=== PATIENT | male | born 2000 | race Caucasian/White ===

== ENCOUNTER 2022-11-13 07:53 | Outpatient (AMB) | payer MEDICAID, SELFPAY ==
--- NOTE | 2022-11-13 08:10 | MHC.OFFVIS ---
Intake Vital Signs 11/13/22 08:17 Height 5 ft 9 in Weight 162 lb BMI 23.9 BP 131/81 Blood Pressure Location Rt brachial Position Sitting Pulse 77 Intake Visit Reasons: Cyst vs lipoma Lt foot Intake Note: This patient presents for an assessment for cyst vs lipoma of the left foot. Patient c/o; denies pain, cyst vs lipoma, reports x2 masses, is scheduled to have a foot US 11/14/22. 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 He says he has noticed this for over 2 weeks. He denies any significant pain. He was seen by his primary care and was sent to me. He also says that he is scheduled for an ultrasound of the mass tomorrow He denies any discharge or any skin changes. [facility] Medical History (Updated 11/13/22 @ 09:02 by Cullen Esteban MD) Subcutaneous mass of left foot Surgical History History of adenoidectomy Family History Maternal Grandfather Throat cancer Maternal Aunt Colon cancer, Onset Age: 50 Social History Alcohol intake: never Patient Tobacco Use Status: Never used Tobacco Review of Systems Const Denies chills and Denies fever(s) Card Denies chest pain, Denies dyspnea and Denies dyspnea on exertion Resp Denies cough, Denies dyspnea and Denies dyspnea on exertion GI Denies hematochezia and Denies change in bowel habits Denies hematuria and Denies difficulty urinating Musc Denies back pain and Denies limited range of motion Neuro Denies focal weakness and Denies convulsions Psych Denies depression and Denies mood swings Physical Exam Vital Signs: Last Vital Signs Pulse 77 11/13/22 08:17 BP 131/81 11/13/22 08:17 BMI result Body Mass Index 23.9 Const General: comfortable and no acute distress Orientation/consciousness: patient oriented x3 Neck Neck: Yes no lymphadenopathy Resp Auscultation: clear to auscultation bilaterally Cardio Rhythm: regular rhythm GI Palpation (GI): Soft to palpation, nontender and no guarding Neuro General: patient oriented x3 Extrem Other: Dorsum of left foot with a small, soft, movable subcutaneous mass, measuring about 1.5-2 cm with no skin changes Assessment & Plan Assessment & Plan (1) Subcutaneous mass of left foot: Code(s): R22.42 - Localized swelling, mass and lump, left lower limb Plan: This appears to be a lipoma. He states that he is scheduled to have an ultrasound tomorrow. He wants to wait for this prior to any intervention. I did explain to him the option of proceeding with excision. I explained the technique of excision under local anesthesia. I reviewed the risks, benefits, and alternatives He says he will come back to the office in about 2 weeks or so. Coding Level of Care Code New Pt Level 3 (66042) Diagnoses Subcutaneous mass of left foot R22.42
[2022-11-13 08:17] VITALS: BP 131/81; PULSE 77; BMI 23.9
== END 2022-11-13 09:02 | disposition home or self-care (01) ==
PROVIDERS: PCP Pediatrics; Visit Provider Surgery
DX: R22.42 Localized swelling, mass and lump, left lower limb (principal)
CPT/HCPCS: 99203

== ENCOUNTER → 2022-11-13 07:53 | Outpatient (BNVA) | payer MEDICAID, SELFPAY | PROVIDERS: PCP Pediatrics; Visit Provider Surgery ==

== ENCOUNTER 2022-11-14 13:38 | Outpatient (REF) | payer MEDICAID, SELFPAY ==
--- NOTE | ~2022-11-14 | US_ITS ---
EXAMINATION: ULTRASOUND EXTREMITY LEFT FOOT CLINICAL INFORMATION: Growth of left foot, question bony prominence at the dorsal/lateral, proximal foot. Similar to finding present on contralateral right foot, just less prominent. COMPARISON: None available. TECHNIQUE: Targeted ultrasound images were obtained by the 3d technologist of the area of concern as indicated by the patient along the proximal, lateral/dorsal aspect of the left foot. Radiologist was not in attendance. Images were later provided for interpretation. FINDINGS: No discrete mass or fluid collection identified in the area of concern indicated by the patient along the proximal, lateral/dorsal aspect of the left foot. Bony prominence is identified in this region. Dedicated radiographs of the foot/ankle recommended with placement of a radiopaque marker to indicate the area of concern indicated by the patient. US/US extremity nonvascular IMPRESSION: No discrete mass or fluid collection identified in the area of concern indicated by the patient along the proximal, lateral/dorsal aspect of the left foot. Bony prominence is identified in this region, difficult to evaluate due to shadowing. Dedicated radiographs of the foot/ankle recommended with placement of a radiopaque marker to indicate the area of concern indicated by the patient.
== END 2022-11-14 13:39 | disposition home or self-care (01) ==
LOC: HO.US 13:38
PROVIDERS: Visit Provider Internal Medicine
DX: D49.2 Neoplasm of unspecified behavior of bone, soft tissue, and skin (principal)
CPT/HCPCS: 76882

== ENCOUNTER 2022-11-21 13:35 | Outpatient (AMB) | payer MEDICAID, SELFPAY ==
--- NOTE | 2022-11-21 14:00 | A.OFFVIS_ITS ---
Intake Intake Visit Reasons: Lipoma Lt foot, US results Intake Note: This patient presents for a follow-up assessment status post Ultrasound. Patient c/o; reports no changes at this time. 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 He was for this because of what appeared to be lipoma on the left foot. His ultrasound report states that there was no obvious mass or fluid collections seen. However, the patient points to this area on the left foot with a definite mass on the dorsal aspect. [facility] Medical History Subcutaneous mass of left foot Surgical History History of adenoidectomy Family History Maternal Grandfather Throat cancer Maternal Aunt Colon cancer, Onset Age: 50 Social History Alcohol intake: never Patient Tobacco Use Status: Never used Tobacco Review of Systems Const Denies chills and Denies fever(s) Card Denies chest pain, Denies dyspnea and Denies dyspnea on exertion Resp Denies cough, Denies dyspnea and Denies dyspnea on exertion GI Denies hematochezia and Denies change in bowel habits Denies hematuria and Denies difficulty urinating Musc Denies back pain and Denies limited range of motion Neuro Denies focal weakness and Denies convulsions Psych Denies depression and Denies mood swings Physical Exam Const General: comfortable and no acute distress Resp Effort & Inspection: normal respiratory effort Extrem Other: Dorsum of left foot with note of a mobile subcutaneous mass, about 2 cm in size, nontender Assessment & Plan Assessment & Plan (1) Subcutaneous mass of left foot: Code(s): R22.42 - Localized swelling, mass and lump, left lower limb Plan: I reviewed with him the ultrasound findings. However, he does have a movable mass on the area as described above. He says that he wants to proceed with excision. I explained the technique of excision under local anesthesia. I reviewed the risks, benefits, and alternatives and has given consent. This excision will be done in the office on his next visit. Coding Level of Care Code Est Pt Level 2 (68378) Diagnoses Subcutaneous mass of left foot R22.42
== END 2022-11-21 14:23 | disposition home or self-care (01) ==
PROVIDERS: PCP Pediatrics; Visit Provider Surgery
DX: R22.42 Localized swelling, mass and lump, left lower limb (principal)
CPT/HCPCS: 99212

== ENCOUNTER → 2022-11-21 13:35 | Outpatient (BNVA) | payer MEDICAID, SELFPAY | PROVIDERS: PCP Pediatrics; Visit Provider Surgery | DX: R22.42 Localized swelling, mass and lump, left lower limb (principal) | CPT/HCPCS: 99212 ==

== ENCOUNTER 2022-11-28 10:38 | Outpatient (AMB) | payer MEDICAID, SELFPAY ==
[2022-11-28 10:40] VITALS: BP 137/75; PULSE 98; BMI 23.9
--- NOTE | 2022-11-28 10:40 | MHC.OFFVIS ---
Intake Vital Signs 11/28/22 10:40 Height 5 ft 9 in Weight 162 lb 0.001 oz BMI 23.9 BP 137/75 Blood Pressure Location Rt brachial Position Sitting Pulse 98 Intake Visit Reasons: Excision of left foot mass Intake Note: This patient presents for in-office procedure for excision of left foot mass. Patient c/o; reports no changes. 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 Accompanied by: Self / Same As Patient Allergies No Known Allergies Allergy (Unverified 11/28/22 10:41) [facility] Medical History Subcutaneous mass of left foot Surgical History History of excision of mass History of adenoidectomy Family History Maternal Grandfather Throat cancer Maternal Aunt Colon cancer, Onset Age: 50 Social History Alcohol intake: never Patient Tobacco Use Status: Never used Tobacco Physical Exam Vital Signs: Last Vital Signs Pulse 98 11/28/22 10:40 BP 137/75 11/28/22 10:40 BMI result Body Mass Index 23.9 Office Procedures Excision Details: He was placed supine. The area of the subcutaneous mass on the dorsum of the left foot was prepped and draped. Lidocaine 1% was used for local anesthesia. I made an incision on the skin overlying the mass using blade 15. This carried down sharply through the full-thickness of the skin and subcutaneous fat until I visualized the mass. This was a soft rubbery mass, not well-defined, about 2 cm in widest dimension. This mass was sharply dissected off the rest of the subcutaneous layer with Metzenbaum scissors until this was delivered and sent as a specimen. I closed the incision with full-thickness nylon 3-0 interrupted sutures. Dressings were applied. The procedure was completed. He was given wound care instructions. He tolerated the procedure well. 61459-ztmkc/arms/legs 1.1-2cm Procedure code (CPT) selection complete Assessment & Plan Assessment & Plan (1) Subcutaneous mass of left foot: Code(s): R22.42 - Localized swelling, mass and lump, left lower limb Plan: Excision done in the office under local anesthesia. He was given wound care instructions. Will be seen in the office for removal sutures. Coding Level of Care Code Procedure Only Diagnoses Subcutaneous mass of left foot R22.42 CPT Codes Trunk/Arms/Legs - CPT: 47200-owyce/arms/legs 1.1-2cm ([id number])
== END 2022-11-28 11:22 | disposition home or self-care (01) ==
PROVIDERS: PCP Pediatrics; Visit Provider Surgery
DX: R22.42 Localized swelling, mass and lump, left lower limb (principal)
CPT/HCPCS: 11402

== ENCOUNTER 2022-11-28 10:38 | Outpatient (REF) | payer MEDICAID, SELFPAY | END 2022-11-28 10:39 | disposition home or self-care (01) | LOC: HO.LNP 10:38 | PROVIDERS: PCP Pediatrics; Visit Provider Surgery | DX: D23.72 Other benign neoplasm of skin of left lower limb, including hip (principal) | CPT/HCPCS: 11402; 88305 ==

== ENCOUNTER 2022-12-09 13:42 | Outpatient (AMB) | payer MEDICAID, SELFPAY ==
--- NOTE | 2022-12-09 13:43 | MHC.OFFVIS ---
Intake Vital Signs 12/09/22 13:46 Height 5 ft 9 in BP 117/78 Blood Pressure Location Rt brachial Position Sitting Pulse 113 H Intake Visit Reasons: s/p excision of left foot mass Intake Note: This patient presents for a post-op assessment status post excision left foot mass. Patient c/o; reports no changes or complaints at this time. 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 He tolerated the procedure well. Her currently denies significant complaints. [facility] Medical History Subcutaneous mass of left foot Surgical History History of excision of mass History of adenoidectomy Family History Maternal Grandfather Throat cancer Maternal Aunt Colon cancer, Onset Age: 50 Social History Alcohol intake: never Patient Tobacco Use Status: Never used Tobacco Review of Systems Const Denies chills and Denies fever(s) Card Denies chest pain, Denies dyspnea and Denies dyspnea on exertion Resp Denies cough, Denies dyspnea and Denies dyspnea on exertion GI Denies hematochezia and Denies change in bowel habits Denies hematuria and Denies difficulty urinating Musc Denies back pain and Denies limited range of motion Neuro Denies focal weakness and Denies convulsions Psych Denies depression and Denies mood swings Physical Exam Vital Signs: Last Vital Signs Pulse 113 H 12/09/22 13:46 BP 117/78 12/09/22 13:46 Const General: comfortable and no acute distress Extrem Other: Left foot excision site on the dorsum is well healed, not infected, sutures intact Assessment & Plan Assessment & Plan (1) Subcutaneous mass of left foot: Code(s): R22.42 - Localized swelling, mass and lump, left lower limb Plan: Status post excision. The incision is well healed. I removed all his sutures. I reinforced incision with Steri-Strips. His path report shows a collagenous fibroma. I explained to him the benign nature of this pathology. He can follow up on a p.r.n. basis. Coding Level of Care Code Global (11210) Diagnoses Subcutaneous mass of left foot R22.42
[2022-12-09 13:46] VITALS: BP 117/78; PULSE 113
== END 2022-12-09 13:53 | disposition home or self-care (01) ==
PROVIDERS: PCP Pediatrics; Visit Provider Surgery
DX: R22.42 Localized swelling, mass and lump, left lower limb (principal)
CPT/HCPCS: 99024

== ENCOUNTER → 2022-12-09 13:42 | Outpatient (BNVA) | payer MEDICAID, SELFPAY | PROVIDERS: PCP Pediatrics; Visit Provider Surgery ==

== ENCOUNTER 2023-04-23 09:42 | Outpatient (REF) | payer MEDICAID, SELFPAY ==
[2023-04-23 11:49] LABS: Cholesterol 165 mg/dL (<200); HDL Cholesterol 47 mg/dL (>40); LDL Cholesterol Calculated 96 mg/dL (<100); Triglycerides 114 mg/dL (<150)
== END 2023-04-23 09:43 | disposition home or self-care (01) ==
LOC: HO.HHCL 09:42
PROVIDERS: Visit Provider Nurse Practitioner Primary Care
DX: E78.1 Pure hyperglyceridemia (principal)
CPT/HCPCS: 36415; 80061

== ENCOUNTER 2024-08-03 09:01 | Outpatient (REF) | payer MEDICAID, SELFPAY ==
[2024-08-03 11:49] LABS: Cholesterol 201 mg/dL (<200); HDL Cholesterol 38 mg/dL (>40); LDL Cholesterol Calculated 122 mg/dL (<100); Triglycerides 207 mg/dL (<150)
== END 2024-08-03 09:02 | disposition home or self-care (01) ==
LOC: HO.HHCL 09:01
PROVIDERS: Visit Provider Nurse Practitioner Primary Care
DX: E78.1 Pure hyperglyceridemia (principal)
CPT/HCPCS: 36415; 80061

== ENCOUNTER 2024-11-26 16:28 | Emergency (ER) | payer MEDICAID, SELFPAY ==
[2024-11-26 16:52] VITALS: BP 147/74; PULSE 94; RESP 16; TEMP 36.4; O2SAT 98; BMI 25.1
--- NOTE | 2024-11-26 16:52 | ED.GENADULT ---
HPI - General Adult General Chief complaint: Abdominal Pain Stated complaint: v/d loss of appetite Time Seen by Provider: 11/26/24 19:54 History of Present Illness ED Provider: Ashu Cedillo MD HPI narrative: [age] male with less than 24 hours of loose stool multiple episodes per day without blood gas and cramping in the abdomen diffusely as well as nausea and decreased p.o. intake. No fever no recent unusual foods. No sick contacts. No travel outside the country . No known inflammatory bowel disease or other medical issues. He does take psychiatric medications that are listed in the chart is clonidine ADHD medication and loratadine. No focal abdominal pain described no lower abdominal pain Related Data Home Medications ?Medication ?Instructions ?Recorded ?Confirmed clonidine HCl 0.1 mg tablet 0.1 mg PO BEDTIME PRN 11/13/22 11/21/22 dextroamphetamine-amphetamine ER 1 cap PO DAILY attention deficit 11/13/22 11/21/22 25 mg 24hr capsule,extend release hyperactivity disorder (Adderall XR) fluticasone propionate 50 intranasal 11/13/22 11/21/22 mcg/actuation nasal spray,suspension loratadine 10 mg tablet 10 mg PO DAILY PRN allergies 11/13/22 11/21/22 omega-3 fatty acids 500 mg capsule 500 mg PO DAILY 11/13/22 11/21/22 Previous Rx's ?Medication ?Instructions ?Recorded dicyclomine 10 mg capsule 10 mg PO TID #7 caps 11/26/24 ondansetron 4 mg disintegrating 4 mg PO Q8H PRN nausea and 11/26/24 tablet vomiting #7 tabs simethicone 180 mg capsule 180 mg PO BID PRN abdominal 11/26/24 distention #10 caps Allergies Allergy/AdvReac Type Severity Reaction Status Date / Time No Known Allergies Allergy Verified 11/26/24 16:52 [facility] Past Medical History Medical History Subcutaneous mass of left foot Surgical History History of excision of mass History of adenoidectomy Family History Family History Maternal Grandfather Throat cancer Maternal Aunt Colon cancer, Onset Age: 50 Social History Social History Alcohol intake: never Patient Tobacco Use Status: Never used Tobacco Smoked in Last 30 Days: No Use of substances other than those prescribed or required for medical reasons: No Advance Directives: No Advance Directives Information Provided: Yes Physical Exam ED Exam Exam: EXAM: Gen: Alert, awake, well appearing, well hydrated. Head: Atraumatic Eyes: Anicteric, Normal conjunctiva. ENT: Moist mucosa, no pallor. ? Neck: Supple. Skin: ?No observable rash or bruising on exposed or examined skin Respiratory: Breathing comfortably, No distress.Clear to auscultation bilaterally, symmetric chest expansion, No wheeze, rales, ronchi. Cardiovascular: Regular rate and rhythm. No murmurs or rub. Well perfused periphery, warm extremities. No edema. ? Abdominal: No focal tenderness. Soft, no objective distension. No palpable masses or obvious organomegaly. ?No guarding, no rebound tenderness or other peritoneal findings. : No flank tenderness. Neuro: Alert. Gross movement of all extremities intact. ? Psych: Calm. Cooperative. MSK: No grossly visible deformity. Vital signs: See flowsheet Vital Signs: Vital Signs - 24 hr 11/26/24 16:52 11/26/24 21:18 11/26/24 21:20 Temperature 97.6 F 98.4 F 98.4 F Pulse Rate 94 82 82 Respiratory Rate 16 16 16 Blood Pressure 147/74 H 119/76 119/76 Pulse Oximetry 98 98 98 Oxygen Delivery Method Room Air Room Air Room Air BMI result Body Mass Index 25.1 Course Course Course Narrative: This is a rapid medical exam performed by Buddy Nicole NP: Additional HPI, ROS, PE not included below will be deferred to primary provider. Patient is a 22-year-old male presenting in the emergency department with complaint of nausea vomiting diarrhea since yesterday. Intermittent abdominal pain. Plan: Labs, viral swabs Medications Administered Discontinued Medications Generic Name Dose Route Start Last Admin Trade Name Freq PRN Reason Stop Dose Admin Dicyclomine HCl 10 mg 11/26/24 20:03 11/26/24 21:14 Dicyclomine Hcl 10 Mg Capsule PO 11/26/24 20:04 10 mg ONCE ONE Administration Ondansetron HCl 4 mg 11/26/24 20:03 11/26/24 21:14 Ondansetron Odt 4 Mg Tab.Sudis TRANSLINGU 11/26/24 20:04 4 mg ONCE ONE Administration Medical Decision Making Medical Decision Making MDM Narrative: Medical Decision Makin-year-old healthy male with less than 24 hours of GI symptoms as above. Looks euvolemic comfortable afebrile. Vitals stable. Abdominal exam reassuring doubt acute surgical pathology certainly no clinical evidence to suggest appendicitis, colitis or other acute abdominal pathology to indicate any emergent abdominal imaging. Symptomatic control strict return precautions described patient is with a family member who was present for the conversation Preliminary Favored Differential Diagnosis: Gastroenteritis, food-borne illness, dehydration, electrolyte derangement among additional considered etiologies Testing Interpreted Independently: ?See below for details Radiology or Lab testing Results Reviewed: ?See below for details Consults: ?See below for details Independent Historians/External Chart Reviews: ?See below for details Social Determinants of Health Impacting MDM/Planning: ?See below for details Lab Data MDM Lab Attestation statement: I reviewed the patient's lab results. 11/26/24 17:31 11/26/24 17:31 Labs: Lab Results 11/26/24 Range/Units 17:31 WBC 8.2 (4.8-10.8) X10*3/uL RBC 5.54 (4.60-5.80) X10*6/uL Hgb 14.3 (14.0-18.0) g/dl Hct 43.6 (42.0-52.0) % MCV 78.7 L (80.0-98.0) fL MCH 25.8 L (27.0-33.0) pg MCHC 32.8 (31.0-36.0) g/dl RDW 12.4 (11.0-16.0) % Plt Count 267 (160-400) X10*3/uL MPV 9.0 L (9.4-12.4) fL Immature Gran % (Auto) 0.2 (0.0-0.4) % Neut % (Auto) 74.0 H (45-73) % Lymph % (Auto) 19.3 L (20-40) % [place] % (Auto) 5.7 (2-11) % Eos % (Auto) 0.4 (0-4) % Baso % (Auto) 0.4 (0-2) % Lymph # (Auto) 1.6 (1.2-4.9) X10*3/uL [place] # (Auto) 0.5 (0.1-1.2) X10*3/uL Eos # (Auto) 0.0 (0.0-0.4) X10*3/uL Baso # (Auto) 0.0 (0.0-0.2) X10*3/uL Abs Immat Gran (auto) 0.02 (0.00-0.03) X10*3/uL Absolute Neuts (auto) 6.1 (2.0-8.3) x10*3/uL Absolute Nucleated RBC 0.000 (0.0-0.012) X10*3/uL Nucleated RBC % (auto) 0.0 (0.0-0.2) /100WBC Sodium 141 (135-145) mmol/L Potassium 3.7 (3.3-5.1) mmol/L Chloride 105 (96-108) mmol/L Carbon Dioxide 28 (22-29) mmol/L Anion Gap 12 (12-20) BUN 8 L (9-16) mg/dL Creatinine 0.75 (0.5-1.4) mg/dL Estim Creat Clear Calc 149.4 Estimated GFR > 60 Random Glucose 106 (60-115) mg/dL Calcium 10.0 (8.4-10.2) mg/dL Total Bilirubin 0.8 (0.0-1.0) mg/dL AST 20 (5-37) U/L ALT 13 (0-40) U/L Alkaline Phosphatase 91 (39-117) U/L Total Protein 7.7 (6.5-8.0) g/dL Albumin 5.1 H (3.5-5.0) g/dL COVID-19 (MIGEL) Negative (Negative) COVID-19 Clin Com See Note Influenza Type A (ESTHER) Negative (Negative) Influenza Type B (ESTHER) Negative (Negative) Influenza A & B Note See Note Discharge Plan Discharge Clinical Impression: Vomiting, Diarrhea Patient Disposition: Home, Self-Care Instructions: Acute Nausea and Vomiting (ED) Additional Instructions: Gastroenteritis Discharge Instructions What to Expect: Gastroenteritis (stomach flu) usually causes diarrhea, vomiting, stomach pain, and sometimes fever. Most cases get better in a few days with simple care at home.[1]https://pubmed.ncbi.nlm.nih.gov/20643611[2]https://pubmed.ncbi.nlm.nih.gov/33027465[3]https://pubmed.ncbi.nlm.nih.gov/63823088 Hydration: - Drink plenty of fluids to prevent dehydration. Water, clear broths, oral rehydration solutions (like Pedialyte), or diluted juices are best. [4]https://www.ncbi.nlm.nih.gov/pmc/articles/USI9938764/[1]https://pubmed.ncbi.nlm.nih.gov/14355577[2]https://pubmed.ncbi.nlm.nih.gov/37750303[5]https://www.nejm.org/doi/full/10.1056/EZSOms960948[6]https://www.nejm.org/doi/full/10.1056/DWJLdk7426287 - Take small sips often if you are vomiting. - Avoid drinks with lots of sugar (like soda) and caffeine, which can make diarrhea worse. [7]https://jamanetwork.com/journals/genet/fullarticle/10.1001/genet.2016.5352?utm_source=openevidence&utm_medium=referral - Signs of dehydration include dry mouth, little or no urine, dizziness, or feeling very tired. If these happen, seek medical help.[2]https://pubmed.ncbi.nlm.nih.gov/61125803[6]https://www.nejm.org/doi/full/10.1056/NIYKax2093045[8]https://wwwnc.cdc.gov/travel/yellowbook/2023/family/nlbtubg-cve-kvldemop Eating: - Resume eating as soon as you feel able. Start with bland, cobv-kb-bpdrwc foods like toast, rice, bananas, applesauce, or crackers. [4]https://www.ncbi.nlm.nih.gov/pmc/articles/ZVJ1948360/[5]https://www.nejm.org/doi/full/10.1056/GEPTzc602511[6]https://www.nej.org/doi/full/10.1056/CXWShh1915269 - There is no need to avoid solid food for 24 hours. - Dairy products may cause more diarrhea for some people, so avoid them if they make symptoms worse. [4]https://www.ncbi.nlm.nih.gov/pmc/articles/PLL7246110/[5]https://www.[facility].org/doi/full/10.1056/MEMOkc223845 - Children should continue their usual diet as tolerated, including breast milk or formula.[2]https://pubmed.ncbi.nlm.nih.gov/27224823[9]https://pubmed.ncbi.nlm.nih.gov/90418002[8]https://wwwnc.cdc.gov/travel/yellowbook/2023/family/qdejjft-ddc-uaekjdoc Medications: - Most people do not need medicine for diarrhea. - Adults may use loperamide (Imodium) for watery diarrhea, but do not use it if you have blood in your stool or a high fever. [4]https://www.ncbi.nlm.nih.gov/pmc/articles/APA3599954/[10]https://www.[facility].org/doi/full/10.1056/GWQOpf6220114[3]https://pubmed.ncbi.nlm.nih.gov/95583580[6]https://www.nej.org/doi/full/10.1056/XCNKyo5161128 - Children should not use loperamide or similar medicines. [8]https://wwwnc.cdc.gov/travel/yellowbook/2023/family/ewnbwob-qha-rtzrypdt - If vomiting is severe, your doctor may recommend an anti-nausea medicine like ondansetron for children over 4 years old.[4]https://www.ncbi.nlm.nih.gov/pmc/articles/RPO8709122/[2]https://pubmed.ncbi.nlm.nih.gov/82257168[8]https://wwwnc.[facility].gov/travel/yellowbook/2023/family/gfhmdgi-wmr-xccachxx Prevention: - Wash your hands well and often, especially after using the bathroom and before eating. [1]https://pubmed.ncbi.nlm.nih.gov/03284789[3]https://pubmed.ncbi.nlm.nih.gov/90687559[9]https://pubmed.ncbi.nlm.nih.gov/38891312 - Clean surfaces and avoid sharing towels or utensils. When to Seek Help: Call your doctor or go to the emergency room if you have: - Signs of dehydration (see above) - Blood in your stool or vomit - High fever (over 101.3?F or 38.5?C) - Severe stomach pain - Vomiting that won?t stop or you can?t keep fluids down - Diarrhea lasting more than 7 days[1]https://pubmed.ncbi.nlm.nih.gov/51862351[2]https://pubmed.ncbi.nlm.nih.gov/72930650[8]https://wwwnc.[facility].gov/travel/yellowbook/2023/family/uauovaj-ksf-ivqsfhgb Follow-Up: Most people recover fully at home. If symptoms worsen or you are concerned, contact your healthcare provider. [id number]. Prescriptions: New ondansetron 4 mg tablet,disintegrating 4 mg PO Q8H PRN (Reason: nausea and vomiting) Qty: 7 0RF dicyclomine 10 mg capsule 10 mg PO TID Qty: 7 0RF simethicone 180 mg capsule 180 mg PO BID PRN (Reason: abdominal distention) Qty: 10 0RF No Action dextroamphetamine-amphetamine [Adderall XR] 25 mg capsule,extended release 24hr 1 cap PO DAILY clonidine HCl 0.1 mg tablet 0.1 mg PO BEDTIME PRN fluticasone propionate 50 mcg/actuation spray,suspension intranasal loratadine 10 mg tablet 10 mg PO DAILY PRN (Reason: allergies) omega-3 fatty acids 500 mg capsule 500 mg PO DAILY Interventions: ED Discharge Assessment Last Done: 11/26/24 21:20 Discharge Date/Time: 11/26/24 21:20 Print Language: Mohawk
[2024-11-26 17:36] LABS: MANUAL DIFF FLAG NO
[2024-11-26 17:39] LABS: Hematocrit 43.6 % (42.0-52.0); Hemoglobin 14.3 g/dl (14.0-18.0); Imm Gran Abs Auto 0.02 X10*3/uL (0.00-0.03); Imm Gran Pct Auto 0.2 % (0.0-0.4); Lymphocytes Absolute Auto 1.6 X10*3/uL (1.2-4.9); Mean Corpuscular HGB Conc 32.8 g/dl (31.0-36.0); Mean Corpuscular Hemoglobin 25.8 pg (27.0-33.0); Mean Corpuscular Volume 78.7 fL (80.0-98.0); NRBC Abs Auto 0.000 X10*3/uL (0.0-0.012); NRBC Pct Auto 0.0 /100WBC (0.0-0.2); Platelet Count 267 X10*3/uL (160-400); Red Blood Count 5.54 X10*6/uL (4.60-5.80); White Blood Count 8.2 X10*3/uL (4.8-10.8)
[2024-11-26 17:53] LABS: Alanine Aminotransferase 13 U/L (0-40); Albumin Level 5.1 g/dL (3.5-5.0); Alkaline Phosphatase 91 U/L (39-117); Anion Gap 12 (12-20); Aspartate Amino Transferase 20 U/L (5-37); Blood Urea Nitrogen 8 mg/dL (9-16); Calcium 10.0 mg/dL (8.4-10.2); Carbon Dioxide 28 mmol/L (22-29); Chloride 105 mmol/L (96-108); Creatinine Clr Calc Pharmacy 149.4; Estimated Glomerular Filt Rate > 60; Potassium 3.7 mmol/L (3.3-5.1); Sodium 141 mmol/L (135-145); Total Protein 7.7 g/dL (6.5-8.0)
[2024-11-26 17:59] LABS: COVID-19 Test Negative (Negative); IDNOW Serial# 55D5AD1C
[2024-11-26 18:00] LABS: IDNOW Serial# 58CA691E; Influenza B2 Negative (Negative)
--- OUTSIDE RECORDS SUMMARY | 2024-11-26 20:18 | XMS_ITS | Encounter Summary ---
Author Organization [facility] Address [address] [place] [address] [address] [place] [address] Care Team Providers Care It Communications Manager Name Role Phone Pia Turner Primary Care Provider [phone] Reason for Visit * Reason Comments Med Refill Encounter Details Date Type Department Care Team ([facility] Contact Info) Description 09/07/2022 Refill [facility] [address] [place] [address] Grecia Addison MD [address] [place] [address] Social History Tobacco Use Types Packs/Day Years Used Date Smoking Tobacco: Never Passive Smoke Exposure: Never Smokeless Tobacco: Never Alcohol Use Standard Drinks/Week Comments Never 0 (1 standard drink = 0.6 oz pur e alcohol) Depression Answer Date Recorded Patient Health Questionnaire-2 Score 0 03/05/2022 Sex and Gender Information Value Date Recorded Sex Assigned at Male 12/24/2021 10:17 AM EDT Legal Sex Male 10:17 AM EDT Gender Identity Male 12/24/2021 10:17 AM EDT Sexual Orientation Straight 12/24/2021 10 :17 AM EDT COVID-19 Exposure Response Date Recorded In the last 10 days, have yo u been in contact with someone who was confirmed or suspected to have Coronavirus/COVID-19? No / Unsure 08/09/2022 9:43 AM EDT documented as of this encounter Plan of Treatment Not on file documented as of this encounter Visit Diagnoses Not on filedocumented in this encounter Care Teams It Communications Manager Relationship Specialty Start Date End Date Pia Turner ANP [address] [place] [address] PCP - General Family Medicine 09/03/21 documented as of this encounter
--- OUTSIDE RECORDS SUMMARY | 2024-11-26 20:18 | XMS_ITS | Clinical Summary ---
Author Organization [facility] [employer] Address [address] [place] [address] [address] [place] [address] Care Team Providers Care Credit Support Counselor Name Role Phone Pia Turner Primary Care Provider [phone] Allergies No known active allergies Medications amphetamine-dext roamphetamine XR (Adderall XR) 25 MG 24 hr capsule 1 cap PO daily in the AM Active cholecalciferol (D3-5) 5,000 Units tablet 1 tab po once a day 2 Active cloNIDine (Catapres) 0.1 MG tablet TAKE 1 TABLET BY MOUTH EVERY DAY AT BEDTIME NEEDED 3 Active tretinoin (Retin-A) 0.05 % creamIndications :Acne vulgaris apply a small amount to entire face at bedtime 45 g 2 3 Active omega-3 (fish oil) 300 MG capsuleIndicatio ns:Hypertriglyce ridemia 1 caps po BID 180 capsule 1 4 Active fluticasone (Flonase) 50 MCG/ACT nasal sprayIndications :Non-seasonal allergic rhinitis, unspecified trigger TAKE 1 TO 2 SPRAYS IN EACH NOSTRIL ONCE A DAY IN THE MORNING SHAKE GENTLY BEFORE USE PRIME PUMP CLEAN TIP AND REPLACE CAP AFTER USE 48 mL 4 Active loratadine (Claritin) 10 MG tabletIndication s:Non-seasonal allergic rhinitis, unspecified trigger Take 1 tablet as needed for allergies once daily 90 tablet 1 5 Active Active Problems Problem Noted Date Diagnosed Date Acne 01/26/2022 Hypertriglyceridemia 01/18/2015 Allergic rhinitis 06/18/2011 Attention deficit hyperactivity disorder 012 Immunizations Immunization Administration Dates Next Due DTaP 10/17/2006, 4,2002,06/28,2002 HPV, Quadrivalent 04/29/2014,05/20/2013,03/22/19 14 Hep A, ped/adol, 2 dose 03/22/2013,02/27/2012 Hep B, Adolescent or Pediatric 2002,2002,2002 Hib (HbOC) 09/13/2003, 4,2002,04/26 IPV 10/17/2006, 3,2002,04/26 Influenza injectable quadriv alent IIV4 with preservative 12/27/2015 Influenza injectable quadriv alent preservative free 03/05/2022,11/28/2021,12/17/2019,12/25,12/27/2015,11/28/2014,01/28/2014 Influenza, IIV3, injectable 01/29/2011,1 ,11/29/2008,11/30,12/17/2006,11/29/2005,11/27/2004 ,02/21/2004,01/13/2004 Influenza, Split (incl. tiff fied surface antigen) 03/22/2013,02/27/2012 Influenza, seasonal, injecta ble, preservative free 04/29/2024 MMR 10/17/2006,03/16/2003 Meningococcal MCV4P [id number]-135 05/18/2018,03/22/19 14 Pfizer Covid-19 Vaccine 12+ 09/26/2020, 1 Pneumococcal Conjugate PCV 7 02/21/2004, 2002,2002,04/26 TD (adult), 2 Lf tetanus tox oid, preservative free, adsorbed 04/21/2023 Tdap 03/22/2013 Varicella 12/01/2007,03/16/2003 Social History Tobacco Use Types Packs/Day Years Used Date Smoking Tobacco: Never Passive Smoke Exposure: Never Smokeless Tobacco: Never Tobacco Cessation:Counseling Given: Not Answered Alcohol Use Standard Drinks/Week Comments Never 0 (1 standard drink = 0.6 oz pur e alcohol) Depression Answer Date Recorded Patient Health Questionnaire-9 Score 0 04/29/2024 Patient Health Questionnaire-9 Score 0 04/29/2024 Last PHQ-9: Questionnaire Data Not on file 0 04/29/2024 Housing Stability Answer Date Recorded What is your housing situation today? I have gregory john 04/29/[address] you li ve. Do you have problems with any of the following? None of the above 04/29/2024 Food Insecurity Answer Date Recorded Within the past 12 months, y ou worried that your food would run out before you got money to buy more: Never True 04/29/2024 Within the past 12 months,th e food you bought just didn't last and you didn't have enough money to get more: Never True 07/2024 Transportation Answer Date Recorded In the past 12 months, has l ack of transportation kept you from medical appts, meetings, work or from getting things needed for daily living? No 04/29/2024 Utilities Answer Date Recorded In the past 12 months, has t he electric, gas, oil or water company threatened to shut off services in your home? No 04/29/2024 Depression Answer Date Recorded Patient Health Questionnaire-2 Score 0 04/29/2024 Internet Access Answer Date Recorded Internet Access Q1 Yes 04/29/2024 Internet Access Q2 Not on file 04/29/2024 Sex and Gender Information Value Date Recorded Sex Assigned at Male 12/24/2021 10:17 AM EDT Legal Sex Male 10:17 AM EDT Gender Identity Male 12/24/2021 10:17 AM EDT Sexual Orientation Straight 12/24/2021 10 :17 AM EDT Last Filed Vital Signs Vital Sign Reading Time Taken Comments Blood Pressure 120/79 04/29/2024 2:25 PM EST Pulse 74 04/29/2024 2:25 PM EST Temperature 36.9 C (98.5 F) 04/29/2024 2:25 PM EST Respiratory Rate 20 04/29/2024 2:25 PM EST Oxygen Saturation 98% 04/29/2024 2:25 PM EST Inhaled Oxygen Concentration - - Weight 80.7 kg (178 lb) 04/29/2024 2:25 PM EST Height 175.3 cm (5' 9 ) 04/29/2024 2:25 PM EST Body Mass Index 26.29 04/29/2024 2:25 PM EST Plan of Treatment Health Maintenance Due Date Last Done Comments Chlamydia and Gonorrhea Screening 2002 HIV Screening 2002 Disability Screening 2002 Derm Melanoma Skin Check 2002 Family Planning (PISQ) 2017 Meningococcal B Vaccine (1 of 2 - Standard) 2018 Hepatitis C Screening 02/23/2020 COVID-19 Vaccine ( season) 2024 09/26/2020, 09/06/2020 Influenza Vaccine (#1) 2024 , 03/05/2022, 11/28/2021, Additional history exists Alcohol/Substance Use Screening 04/29/2025 04/29/2024 Depression Screening 04/29/2025 04/29/2024, 04/30/19 25 SDOH Screening 04/29/2025 04/29/2024 Tobacco Screening 04/29/2025 04/29/2024 DTaP/Tdap/Td Vaccines (8 - Td or Tdap) 04/21/2033 04/21/2023, 03/22/2013, 10/17/2006, Additional history exists Zoster Vaccines (1 of 2) 02/23/2052 RSV Patients and Patients Aged 60 years or older (1 - 1-dose 75+ series) 2077 Hepatitis B Vaccines Completed 2002, 2002, 2002 HIB Vaccines Completed 09/13/2003, 05/26, 2002, Additional history exists Pneumococcal Vaccine: Pediatrics (0 to 5 Years) and At-Risk Patients (6 to 49) Years Aged Out 02/21/2004, 2002, 2002, Additional history exists No longer eligible based on patient's age to complete this topic IPV Vaccines Completed 10/17/2006, 09/2002, 2002, Additional history exists Hepatitis A Vaccines Completed 03/22/2013, 02/26/19 13 HPV Vaccines Completed 04/29/2014, 04/25, 03/22/2013 Meningococcal Vaccine Completed 05/18/2018, 014 RSV under 20 months Aged Out No longe r eligible based on patient's age to complete this topic Rotavirus Vaccines Aged Out No longer eligible based on patient's age to complete this topic Insurance [facility] C3 * Guarantor: Valentin Bauer Account Type Relation to Patient Date of Phone Billing Address Personal/Family Self [address] Care Teams Credit Support Counselor Relationship Specialty Start Date End Date Pia Turner ANP [address] [place] [id number] PCP - General Family Medicine 09/03/21
--- OUTSIDE RECORDS SUMMARY | 2024-11-26 20:18 | XMS_ITS | Encounter Summary ---
Author Organization [facility] [employer] Address [address] [facility] [address] [place] [address] Care Team Providers Care Cage Shift Manager Name Role Phone Pia Turner CICI Primary Care Provider [phone] Reason for Visit * Reason Comments Med Refill Encounter Details Date Type Department Care Team ([facility] Contact Info) Description 12/24/2022 Refill [facility] [address] [place] [address] Luisa Viveros MD [address] [place], [place] [phone] Non-seasonal allergic rhinitis, unspecified trigger Social History Tobacco Use Types Packs/Day Years Used Date Smoking Tobacco: Never Passive Smoke Exposure: Never Smokeless Tobacco: Never Alcohol Use Standard Drinks/Week Comments Never 0 (1 standard drink = 0.6 oz pur e alcohol) Housing Stability Answer Date Recorded What is your housing situation today? I have gregory john 12/09/[address] you li ve. Do you have problems with any of the following? None of the above 12/09/2022 Food Insecurity Answer Date Recorded Within the past 12 months, y ou worried that your food would run out before you got money to buy more: Never True 12/09/2022 Within the past 12 months,th e food you bought just didn't last and you didn't have enough money to get more: Never True Transportation Answer Date Recorded In the past 12 months, has l ack of transportation kept you from medical appts, meetings, work or from getting things needed for daily living? No 12/09/2022 Utilities Answer Date Recorded In the past 12 months, has t he electric, gas, oil or water company threatened to shut off services in your home? No 12/09/2022 Depression Answer Date Recorded Patient Health Questionnaire-2 Score 0 03/05/2022 Sex and Gender Information Value Date Recorded Sex Assigned at Male 12/24/2021 10:17 AM EDT Legal Sex Male 10:17 AM EDT Gender Identity Male 12/24/2021 10:17 AM EDT Sexual Orientation Straight 12/24/2021 10 :17 AM EDT documented as of this encounter Plan of Treatment Not on file documented as of this encounter Visit Diagnoses Diagnosis Non-seasonal allergic rhinitis, unspecified trigger documented in this encounter Care Teams Cage Shift Manager Relationship Specialty Start Date End Date Pia Turner ANP [address] [place] [id number] PCP - General Family Medicine 09/03/21 documented as of this encounter
--- OUTSIDE RECORDS SUMMARY | 2024-11-26 20:18 | XMS_ITS | Encounter Summary ---
Author Organization [facility] [employer] Address [address] [facility] [address] [place] [address] Care Team Providers Care Office Professionals Name Role Phone Pia Turner Primary Care Provider [phone] Reason for Visit * Reason Comments Med Refill Encounter Details Date Type Department Care Team ([facility] Contact Info) Description 05/23/[address] [facility] [address] [place] [address] Pia Turner ANP [address] [place] [address] Non-seasonal allergic rhinitis, unspecified trigger Social History [...] suspected to have Coronavirus/COVID-19? No / Unsure 05/24/2022 2:48 PM EDT documented as of this encounter Plan of Treatment Not on file documented as of this encounter Visit Diagnoses Diagnosis Non-seasonal allergic rhinitis, unspecified trigger documented in this encounter Care Teams Office Professionals Relationship Specialty Start Date End Date Pia Turner ANP [address] [place] [address] PCP - General Family Medicine 09/03/21 documented as of this encounter
[2024-11-26 21:18] VITALS: BP 119/76; PULSE 82; RESP 16; TEMP 36.9; O2SAT 98
[2024-11-26 21:20] VITALS: BP 119/76; PULSE 82; RESP 16; TEMP 36.9; O2SAT 98
== END 2024-11-26 21:20 | disposition home or self-care (01) ==
PROVIDERS: Registered Nurse Emergency; Emergency Provider Emergency Medicine
DX: R11.2 Nausea with vomiting, unspecified (principal); R19.7 Diarrhea, unspecified; Z11.52 Encounter for screening for COVID-19; Z79.899 Other long term (current) drug therapy
CPT/HCPCS: 80053; 85025; 87502; 87635; 99283; 99284